=== PATIENT | female | born 1995 | race Two or more races ===

== ENCOUNTER 2019-06-22 21:25 | Emergency (ER) | payer MEDICAID ==
[2019-06-22 21:35] VITALS: BP 127/73
--- NOTE | 2019-06-22 22:19 | ER Document Report ---
ED Medical Screen (RME) - General Chief Complaint: Rectal Bleeding Stated Complaint: RECTAL BLEEDING Time Seen by Provider: 06/22/19 22:12 Notes: 24-year-old female, G4, P2 at 35 weeks gestation, chief complaint of sharp intermittent lower abdominal cramping, intermittent vaginal discharge, and rectal bleeding. She states she has had hemorrhoids and she thinks is a hemorrhoid but she was bleeding earlier more than usual so she wanted to be checked. She states her biggest concern is her . She denies fever, shortness of breath, chest pain, or any other complaints. Physical Exam - Vital signs Vitals: Temp Pulse Resp BP Pulse Ox 98.6 F 86 20 127/73 H 100 06/22/19 21:34 06/22/19 21:34 06/22/19 21:34 06/22/19 21:34 06/22/19 21:34 - General General appearance: Appears well - Well-appearing, no signs of distress - Abdominal Tenderness: No: Nontender - No distention noted, nontender Course - Re-evaluation Re-evalutation: Patient's primary concern is lower abdominal contractions, vaginal discharge, and she wants to be checked because of rectal bleeding. Patient is 35 weeks gestation. Spoke to charge nurse, spoke to nursing staff, they called L&D, patient will be evaluated upstairs. I have greeted and performed a rapid initial assessment of this patient. A comprehensive ED assessment and evaluation of the patient, analysis of test results and completion of the medical decision making process will be conducted by additional ED providers. - Vital Signs Vital signs: Temp Pulse Resp BP Pulse Ox 98.6 F 86 20 127/73 H 100 06/22/19 21:34 06/22/19 21:34 06/22/19 21:34 06/22/19 21:34 06/22/19 21:34
== END 2019-06-22 22:39 | disposition home or self-care (01) ==
LOC: ER 21:25
DX: O99.613 Diseases of the digestive system complicating pregnancy, third trimester (principal); K62.5 Hemorrhage of anus and rectum; O26.893 Other specified pregnancy related conditions, third trimester; R10.9 Unspecified abdominal pain; N89.8 Other specified noninflammatory disorders of vagina; Z3A.35 35 weeks gestation of pregnancy
CPT/HCPCS: 99283

== ENCOUNTER 2019-06-22 22:40 | Outpatient (CLI) | payer MEDICAID ==
[2019-06-22 23:02] LABS: APPEARANCE,URINE SLIGHTLY-CLOUDY; BILIRUBIN,URINE NEGATIVE (NEGATIVE); COLOR,URINE YELLOW; GLUCOSE, URINE NEGATIVE (NEGATIVE); KETONES,URINE NEGATIVE (NEGATIVE); LEUKOCYTE ESTERASE,URINE TRACE (NEGATIVE); NITRITE,URINE NEGATIVE (NEGATIVE); PROTEIN,URINE NEGATIVE (NEGATIVE); URINE SPECIFIC GRAVITY 1.008; UROBILINOGEN,URINE NEGATIVE mg/dL (<2.0)
[2019-06-22 23:15] LABS: URINE AMPHETAMINES SCREEN NEGATIVE; URINE BARBITURATES SCREEN NEGATIVE; URINE BENZODIAZEPINES SCREEN NEGATIVE; URINE COCAINE SCREEN NEGATIVE; URINE MARIJUANA (THC) SCREEN NEGATIVE; URINE METHADONE SCREEN NEGATIVE; URINE PHENCYCLIDINE SCREEN NEGATIVE
--- NOTE | 2019-06-23 00:07 | Non Stress Test Report ---
Non Stress Test Datetime Report Generated by CPN: 06/23/2019 00:07 DEMOGRAPHIC EGA NST: 33.6 INDICATION Indication for Study (NST) Other: Labor check MONITORING Monitor Explained: Monitor Explained; Test Explained; Patient Verbalized Understanding Time on Monitor: 06/22/2019 22:50 Time off Monitor: 06/22/2019 23:40 NST Duration: 50 NST INTERVENTIONS NST Interventions: PO Hydration Physician Notified NST: Dr. Jc BABY A: [id number] BABY A Movement : Present Contraction Frequency : none FHR Baseline : 135 Accelerations : 15X15 Decelerations : None Variability : Moderate 6-25bpm NST Review: Meets Criteria for Reactive NST NST Review and Verified By : Natalee Arias RN NST Results: Reactive NST REPORT Report Trigger: Send Report
== END 2019-06-22 23:55 | disposition home or self-care (01) ==
LOC: LC 22:40
PROVIDERS: ATTEND Obstetrics & Gynecology Gynecology
DX: Z34.83 Encounter for supervision of other normal pregnancy, third trimester (principal); Z3A.33 33 weeks gestation of pregnancy
CPT/HCPCS: 59025; 80307; 81001

== ENCOUNTER 2019-07-31 00:24 | Inpatient (IN) | payer MEDICAID ==
[2019-07-24 11:24] LABS: ABSOLUTE BASOPHILS # (AUTO) 0.1 10^3/uL (0.0-0.2); ABSOLUTE EOSINOPHILS # (AUTO) 0.2 10^3/uL (0.0-0.6); ABSOLUTE LYMPHOCYTES (AUTO) 2.8 10^3/uL (0.5-4.7); ABSOLUTE MONOCYTES (AUTO) 0.4 10^3/uL (0.1-1.4); ABSOLUTE NEUT (AUTO) 7.1 10^3/uL (1.7-8.2); BASOPHILS % (AUTO) 0.6 % (0-2); EOSINOPHILS % (AUTO) 2.3 % (0-6); HEMATOCRIT 27.3 % (36.0-47.0); HEMOGLOBIN 8.9 g/dL (12.0-15.5); LYMPHOCYTES % (AUTO) 26.6 % (13-45); MEAN CORPUSCULAR HEMOGLOBIN 23.8 pg (27.0-33.4); MEAN CORPUSCULAR HGB CONC 32.6 g/dL (32.0-36.0); MEAN CORPUSCULAR VOLUME 73 fl (80-97); MONOCYTES % (AUTO) 4.2 % (3-13); PLATELET COUNT 295 10^3/uL (150-450); RED BLOOD COUNT 3.73 10^6/uL (3.72-5.28); RED CELL DISTRIBUTION WIDTH 16.6 % (11.5-14.0); SEGMENTED NEUTROPHILS % (AUTO) 66.3 % (42-78); TOTAL CELLS COUNTED % (AUTO) 100 %; WHITE BLOOD COUNT 10.7 10^3/uL (4.0-10.5)
[2019-07-24 11:29] LABS: APPEARANCE,URINE SLIGHTLY-CLOUDY; BILIRUBIN,URINE NEGATIVE (NEGATIVE); COLOR,URINE YELLOW; GLUCOSE, URINE NEGATIVE (NEGATIVE); KETONES,URINE NEGATIVE (NEGATIVE); LEUKOCYTE ESTERASE,URINE NEGATIVE (NEGATIVE); NITRITE,URINE NEGATIVE (NEGATIVE); PROTEIN,URINE NEGATIVE (NEGATIVE); URINE SPECIFIC GRAVITY 1.008; UROBILINOGEN,URINE NEGATIVE mg/dL (<2.0)
[2019-07-24 11:46] LABS: URINE AMPHETAMINES SCREEN NEGATIVE; URINE BARBITURATES SCREEN NEGATIVE; URINE BENZODIAZEPINES SCREEN NEGATIVE; URINE COCAINE SCREEN NEGATIVE; URINE MARIJUANA (THC) SCREEN NEGATIVE; URINE METHADONE SCREEN NEGATIVE; URINE PHENCYCLIDINE SCREEN NEGATIVE
[2019-08-01] MEDS ORDERED: RINGERS SOLUTION,LACTATED 1,500 ML IV PRN (05:00)
[2019-08-01] MEDS ORDERED: CEFAZOLIN SODIUM 2 GM in DEXTROSE 5%-WATER 100 ML IV PRN (05:00)
[2019-08-01] MEDS ORDERED: LACTATED RINGERS 1000 ML IV PRN (05:00)
[2019-08-01] MEDS ORDERED: LIDOCAINE 0.5% INJ-PF (5 MG/ML) 50 ML SDV SUBCUT PRN (05:00)
[2019-08-01] MEDS ORDERED: CEFAZOLIN 2 GM/D5W RTU 2 GM/50 ML RTUPB IV PRN (05:00)
[2019-08-01 05:59] LABS: ABSOLUTE BASOPHILS # (AUTO) 0.1 10^3/uL (0.0-0.2); ABSOLUTE EOSINOPHILS # (AUTO) 0.2 10^3/uL (0.0-0.6); ABSOLUTE LYMPHOCYTES (AUTO) 3.8 10^3/uL (0.5-4.7); ABSOLUTE MONOCYTES (AUTO) 0.7 10^3/uL (0.1-1.4); ABSOLUTE NEUT (AUTO) 11.1 10^3/uL (1.7-8.2); BASOPHILS % (AUTO) 0.4 % (0-2); EOSINOPHILS % (AUTO) 1.4 % (0-6); HEMATOCRIT 27.6 % (36.0-47.0); HEMOGLOBIN 8.8 g/dL (12.0-15.5); LYMPHOCYTES % (AUTO) 23.7 % (13-45); MEAN CORPUSCULAR HEMOGLOBIN 22.9 pg (27.0-33.4); MEAN CORPUSCULAR HGB CONC 31.8 g/dL (32.0-36.0); MEAN CORPUSCULAR VOLUME 72 fl (80-97); MONOCYTES % (AUTO) 4.6 % (3-13); PLATELET COUNT 299 10^3/uL (150-450); RED BLOOD COUNT 3.83 10^6/uL (3.72-5.28); RED CELL DISTRIBUTION WIDTH 16.6 % (11.5-14.0); SEGMENTED NEUTROPHILS % (AUTO) 69.9 % (42-78); TOTAL CELLS COUNTED % (AUTO) 100 %; WHITE BLOOD COUNT 15.9 10^3/uL (4.0-10.5)
[2019-08-01 06:04] LABS: APPEARANCE,URINE TURBID; BILIRUBIN,URINE NEGATIVE (NEGATIVE); COLOR,URINE AMBER; GLUCOSE, URINE NEGATIVE (NEGATIVE); KETONES,URINE NEGATIVE (NEGATIVE); LEUKOCYTE ESTERASE,URINE LARGE (NEGATIVE); NITRITE,URINE NEGATIVE (NEGATIVE); PROTEIN,URINE 30 mg/dL (NEGATIVE); URINE SPECIFIC GRAVITY 1.017
[2019-08-01 06:16] LABS: URINE AMPHETAMINES SCREEN NEGATIVE; URINE BARBITURATES SCREEN NEGATIVE; URINE BENZODIAZEPINES SCREEN NEGATIVE; URINE COCAINE SCREEN NEGATIVE; URINE MARIJUANA (THC) SCREEN NEGATIVE; URINE METHADONE SCREEN NEGATIVE; URINE PHENCYCLIDINE SCREEN NEGATIVE
[2019-08-01] MEDS ORDERED: MISOPROSTOL 0.2 MG TABLET ONE (07:16)
[2019-08-01] MEDS ORDERED: METHYLERGONOVINE MALEATE INJ/PF 0.2 MG/1 ML AMPULE ONE (07:16)
[2019-08-01] MEDS ORDERED: CEFAZOLIN 2 GM/D5W RTU 2 GM/50 ML RTUPB IV ONE (07:16)
[2019-08-01] MEDS ORDERED: ONDANSETRON HCL INJ/PF 4 MG/2 ML SDV ONE (07:42)
[2019-08-01] MEDS ORDERED: DEXAMETHASONE SOD PHOSPHATE INJ 4 MG/1 ML VIAL ONE (07:42)
[2019-08-01] MEDS ORDERED: OXYTOCIN/0.9 % SODIUM CHLORIDE 30 UNIT/500 ML RTUINJ ONE (07:42)
[2019-08-01] MEDS ORDERED: MORPHINE SULFATE 10 MG/ML INJ ONE (07:42)
[2019-08-01] MEDS ORDERED: OXYTOCIN 10 UNIT/ML VIAL ONE (07:42)
[2019-08-01] MEDS ORDERED: MIDAZOLAM 2 MG/2 ML INJ ONE (07:42)
[2019-08-01] MEDS ORDERED: MEPERIDINE HCL/PF INJ 25 MG/1 ML DISP.SYRIN IV PRN (08:07)
[2019-08-01] MEDS ORDERED: FENTANYL CITRATE INJ/PF 100 MCG/2 ML AMPUL IV PRN ×3 (08:07)
[2019-08-01] MEDS ORDERED: MORPHINE SULFATE 10 MG/ML INJ IV PRN (08:07)
[2019-08-01] MEDS ORDERED: PROMETHAZINE HCL INJ 25 MG/1 ML VIAL IV PRN ×3 (08:07→09:02)
[2019-08-01] MEDS ORDERED: DIPHENHYDRAMINE HCL 50 MG/ML VIAL IV PRN (08:07)
[2019-08-01] MEDS ORDERED: OXYCODONE-ACETAMINOPHEN 5-325 MG TABLET PO PRN (09:02)
[2019-08-01] MEDS ORDERED: HYDROMORPHONE HCL INJ/PF 2 MG/ML AMPULE IV PRN (09:02)
[2019-08-01] MEDS ORDERED: ACETAMINOPHEN 325 MG TABLET PO PRN (09:02)
[2019-08-01] MEDS ORDERED: ACETAMINOPHEN 1,000 MG/100 ML RTUPB IV PRN (09:02)
[2019-08-01] MEDS ORDERED: OXYTOCIN/0.9 % SODIUM CHLORIDE 30 UNIT/500 ML RTUINJ IV PRN (09:02)
[2019-08-01] MEDS ORDERED: RINGERS SOLUTION,LACTATED 1,000 ML IV PRN (09:02)
[2019-08-01] MEDS ORDERED: DIPH/PERTUSS(ACELL)/TETANUS VAC/PF 0.5 ML SYR (>=10YO) IM PRN (09:02)
[2019-08-01] MEDS ORDERED: MEASLES,MUMPS&RUBELLA VACC/PF 0.5 ML VIAL SUBCUT PRN (09:02)
[2019-08-01] MEDS ORDERED: ALBUTEROL SULFATE HFA (90 MCG/PUFF) 8 GM MDI (1 MDI/ER DISP) IH PRN (09:05)
[2019-08-01] MEDS ORDERED: ACETAMINOPHEN 1,000 MG/100 ML RTUPB IV ONE (09:35)
[2019-08-01] MEDS ORDERED: KETOROLAC TROMETHAMINE INJ/PF 30 MG/1 ML SDV ONE (09:35)
[2019-08-01] MEDS ORDERED: SIMETHICONE 80 MG TAB.CHEW ONE (09:35)
[2019-08-01] MEDS: SIMETHICONE 80 MG TAB.CHEW PO PRN ×2 (09:37→23:34)
[2019-08-01] MEDS: KETOROLAC TROMETHAMINE INJ/PF 30 MG/1 ML SDV IV SCH ×2 (09:38→17:24)
--- NOTE | 2019-08-01 09:59 | Brief Operative Note ---
BRIEF OPERATIVE REPORT DATE OF SURGERY: 08/01/19 TIME OF SURGERY: 08:00 PREOPERATIVE DIAGNOSIS: H/o section, Hypertrophic Scar, , 39+4ega, CHTN, Asthma, h/o HSV but no lesions/prodrome, iron deficiency anemia POSTOPERATIVE DIAGNOSIS: SARAHI - delivered SURGEON: SORIN JACKSON FINDINGS: VMI delivered at 0814, weight 3570g, Apgars 8/9, normal bilateral tubes/ovaries, IVF 800ml, UOP 200ml, EBL 600ml, QBL 810ml COMPLICATIONS: None ESTIMATED BLOOD LOSS: 600 TISSUE REMOVED OR ALTERED: placenta and cord TECHNICAL PROCEDURE: Repeat section, Scar Revision
[2019-08-01] MEDS ORDERED: FENTANYL CITRATE INJ/PF 100 MCG/2 ML AMPUL ONE (10:19)
--- NOTE | 2019-08-01 11:26 | Delivery Summary ---
Del Sum A-C Datetime Report Generated by CPN: 08/01/2019 11:26 DELIVERY PERSONNEL DELIVERY PERSONNEL: [id number] Delivery Doctor:: Elvira Farrell MD COMMUNICATIONS PROFESSIONAL:: Matt Nash CRNA Labor and Delivery Nurse:: Cary Desai RN Skill Training Program Coordinator:: Cary Desai RN Cloth Bleaching Range Operator Chief:: Dr. Bart Sigalatal Nursery Nurse:: Rosa Thorne RN Medical Records Coder/SLEEVE BOTTOM FELLER: [facility] Medical Records Coder/SLEEVE BOTTOM FELLER: Sirisha Olsen, SHAREPOINT DEVELOPER MATERNAL INFORMATION Delivery Anesthesia: Spinal Medications After Delivery: Pitocin Bolus-Please Comment; Pitocin 30 Units in 500ml NS/D5W Meds After Delivery Comment: Pitocin 30 units in 500 ml NS Delivery QBL: 810 Maternal Complications: None LABOR SUMMARY EDC: 08/04/2019 00:00 No. Babies in Womb: 1 Attempted: No Labor Anesthesia: Intrathecal LABOR INFORMATION Reason for Induction: Not Applicable Oxytocin: N/A Group B Beta Strep: Positive Antibiotics # of Doses: 1 Name of Antibiotic Given: Ancef 2 g Steroids Given: None Reason Steroids Not Administered: Not Applicable MEMBRANES Membranes Rupture Method: Artificial Rupture of Membranes: 08/01/2019 08:13 Length of Rupture (hr): 0.02 Amniotic Fluid Color: Clear Amniotic Fluid Amount: Moderate Amniotic Fluid Odor: Normal STAGES OF LABOR Stage 3 hr: 0 Stage 3 min: 2 CSECTION DELIVERY Primary Indication: Repeat Elective CSection Urgency: Scheduled CSection Incidence: Repeat Labor: N/A Elective: Elective CSection Incision: Lower Uterine Transverse BABY A INFORMATION Infant Delivery Date/Time: 08/01/2019 08:14 Method of Delivery: Nurse Controlled Delivery: No Born in Route : No : N/A Forceps: N/A Vacuum Extraction: N/A Shoulder Dystocia : No PRESENTATION/POSITION BABY A Presentation: Cephalic Cephalic Presentation: Vertex Breech Presentation: N/A PLACENTA INFORMATION BABY A Placenta Delivery Time : 08/01/2019 08:16 Placenta Method of Delivery: Manual Removal Placenta Status: Delivered SCORES BABY A Heart Rate 1 min: >100 bpm Resp Effort 1 min: Good Cry Reflex Irritability 1 min: Cough or Sneeze or Pulls Away Muscle Tone 1 min: Active Motion Color 1 min: Body [place], Extremities Blue SCORE 1 MIN: 9 Heart Rate 5 min: >100 bpm Resp Effort 5 min: Good Cry Reflex Irritability 5 min: Cough or Sneeze or Pulls Away Muscle Tone 5 min: Active Motion Color 5 min: Body [place], Extremities Blue SCORE 5 MIN: 9 INFANT INFORMATION BABY A Gestational Age at Delivery: 39.4 Gestational Status: Full Term- 39- 40.6 Weeks Outcome : Liveborn Condition : Stable Sex: Male IDENTIFICATION BABY A Infant Verification Date/Time: 08/01/2019 08:17 ID Band Number: [id number] Mother's Name Verified: Yes RN Verifying : SHAINA Raines and Jimmy Thorne RN WEIGHT/LENGTH BABY A Birthweight (gm): 3570 Infant Weight (lb): 7 Infant Weight (oz): 14 Length (in): 20.25 Length (cm): 51.44 CORD INFORMATION BABY A No. Cord Vessels: 3 Nuchal Cord : Around Neck x1, Loose Cord Blood Taken: Yes-For Eval (Mom's Blood Type - or O+) Infant Suction: Mouth; Nose ASSESSMENT BABY A Skin to Skin: No BABY B INFORMATION : N/A
[2019-08-01] MEDS: DOCUSATE SODIUM 100 MG CAPSULE PO SCH ×2 (11:29→17:25)
[2019-08-01] MEDS: PRENATAL VITAMIN W DHA CAPSULE PO SCH (11:29)
[2019-08-01] MEDS: FERROUS SULFATE 325 MG TABLET PO SCH (11:29)
[2019-08-01] MEDS: OXYCODONE-ACETAMINOPHEN 5-325 MG TABLET PO PRN ×2 (11:30→20:23)
[2019-08-01] MEDS ORDERED: PHENYLEPHRINE HCL INJ/PF 10 MG/1 ML SDV ONE (14:42)
--- NOTE | 2019-08-01 20:15 | Operative Report ---
Operative Report DATE OF SURGERY: 08/01/19 PREOPERATIVE DIAGNOSIS: H/o section, Hypertrophic Scar, , 39+4e ga, CHTN, Asthma, h/o HSV but no lesions/prodrome, iron deficiency anemia POSTOPERATIVE DIAGNOSIS: ovi - delivered OPERATION: Repeat section, Scar Revision SURGEON: SORIN JACKSON ANESTHESIA: Spinal TISSUE REMOVED OR ALTERED: placenta and cord COMPLICATIONS: none ESTIMATED BLOOD LOSS: 600 QUANTITATIVE BLOOD LOSS: 810 INTRAOPERATIVE FINDINGS: VMI delivered at 0814, weight 3570g, Apgars 8/9, normal bilateral tubes/ovaries, IVF 800ml, UOP 200ml, EBL 600ml, QBL 810ml PROCEDURE: Anesthesia provider: [Dr. Romero, YOLI Johnson] Urine output: [200ml] IV fluids: [800ml] Indications: [24yo at 39+4ega weeks for Repeat section due to history of section. complicated by CHTN (no meds), asthma (mild intermittent controlled on albuterol inhaler), h/o HSV on valtrex since 36wks (no lesions/no prodrome). also complicated by mild iron deficiency anemia for which she is supposed to be on iron but is non compliant due to constipation. The risks, benefits, alternatives were reviewed and she desires to proceed with planned procedure.] Procedure: The patient was taken to the operating room where spinal anesthesia was obtained and found to be adequate. She was then prepped and draped in the normal sterile fashion and placed in the dorsal supine position with a leftward tilt. The prior Pfannenstiel skin incision was excised and then carried through to the underlying layers of the fascia with the scalpel. The fascia was incised in the midline and the incision extended laterally with the Burns scissors. The superior aspect of the fascial incision was then grasped with Valeriano clamps elevated and the underlying rectus muscles dissected off [bluntly]. Attention was then turned to the inferior aspect of the fascial incision which in a similar fashion was grasped, tented up with Valeriano clamps, and the rectus muscles dissected off [bluntly]. The rectus muscles were then in the midline and the peritoneum at the amount identified and entered [bluntly]. The peritoneal incision was then extended superiorly and inferiorly with good visualization of the bladder. The bladder blade was inserted and the vesicouterine peritoneum identified grasped with Chinese pickups and entered sharply with the Metzenbaum scissors. This incision was then extended laterally with the Metzenbaum scissors and a bladder flap created digitally. The bladder blade was then reinserted and the lower uterine segment incised in a transverse fashion with the scalpel. The uterine incision was then extended bluntly. The bladder blade was removed and the 's head was delivered from cephalic presentation atraumatically. The nose and mouth were suctioned and the cord doubly clamped and cut. And the was handed off to waiting pediatricians. The placenta was then delivered spontaneously and the uterus exteriorized and cleared of all clots and debris. The uterine incision was then repaired with 1- 0 Vicryl in a running locked fashion. A second layer of the same suture was used to obtain hemostasis via imbrication of the initial layer. The bladder flap was then repaired with 3-0 chromic in a running fashion. The uterus was returned to the patient's abdomen and Surgicel was placed over uterine incision for hemostasis. The gutters were cleared of all clots and debris. All operative sites were noted to be hemostatic. The fascia was reapproximated with 0 Vicryl in a running fashion from each lateral edge to the midline. The skin was closed with 3-0 Monocryl in a running subcuticular fashion with overlying Exofin for additional dressing as well as wound closure. The patient tolerated the procedure well. Sponge lap needle and instrument counts are correct time 2. 2 g of Ancef were given prior to skin incision. The patient was taken to the recovery area awake and in stable condition.
[2019-08-02] MEDS: KETOROLAC TROMETHAMINE INJ/PF 30 MG/1 ML SDV IV SCH (01:04)
[2019-08-02] MEDS: OXYCODONE-ACETAMINOPHEN 5-325 MG TABLET PO PRN ×3 (03:14→21:53)
[2019-08-02 07:04] LABS: MEAN CORPUSCULAR HEMOGLOBIN 23.1 pg (27.0-33.4); MEAN CORPUSCULAR HGB CONC 31.9 g/dL (32.0-36.0); MEAN CORPUSCULAR VOLUME 72 fl (80-97); PLATELET COUNT 249 10^3/uL (150-450); RED BLOOD COUNT 3.04 10^6/uL (3.72-5.28); RED CELL DISTRIBUTION WIDTH 16.7 % (11.5-14.0); WHITE BLOOD COUNT 19.1 10^3/uL (4.0-10.5)
[2019-08-02] MEDS: SIMETHICONE 80 MG TAB.CHEW PO PRN ×2 (08:07→14:56)
[2019-08-02] MEDS: IBUPROFEN 800 MG TABLET PO SCH ×3 (08:07→18:27)
[2019-08-02] MEDS ORDERED: IRON SUCROSE COMPLEX INJ/PF 100 MG/5 ML SDV IV ONE (10:00)
[2019-08-02] MEDS: DOCUSATE SODIUM 100 MG CAPSULE PO SCH ×2 (10:04→18:27)
[2019-08-02] MEDS: PRENATAL VITAMIN W DHA CAPSULE PO SCH (10:04)
[2019-08-02] MEDS: FERROUS SULFATE 325 MG TABLET PO SCH (10:04)
--- NOTE | 2019-08-02 11:12 | PDOC PROGRESS REPORT ---
Subjective-OB Progress Note for:: 08/02/19 Subjective: Pt doing well. Bonding with baby. She is trying to breastfeed but having trouble with latch this am. Otherwise reports light bleeding, reg diet and voiding without difficulty. Physical Exam (OB) Vital Signs: Temp Pulse Resp BP Pulse Ox 98.1 F 83 16 130/66 H 96 08/02/19 07:24 08/02/19 07:24 08/02/19 07:24 08/02/19 07:24 08/02/19 07:24 Intake & Output 08/01/19 08/02/19 08/03/19 06:59 06:59 06:59 Intake Total 1640 Output Total 4800 Balance -3160 - Dressing Removed: No Incision: Well Approximated Closure Type: Surgical Glue - Lochia Lochia Amount: Scant < 10 ml Lochia Color: Rubra/Red - Abdomen Description: Soft Hernia Present: No Fundal Description: Firm, Midline Fundal Height: u/u - u/2 Objective-Diagnostic Laboratory: 08/02/19 06:24 08/02/19 06:24 WBC 19.1 H RBC 3.04 L Hgb 7.0 L Hct 22.0 L MCV 72 L MCH 23.1 L MCHC 31.9 L RDW 16.7 H Plt Count 249 Assessment and Plan(PN) - Assessment and Plan (1) Chronic hypertension Is this a current diagnosis for this admission?: Yes (2) History of SARAH positive for HSV Is this a current diagnosis for this admission?: Yes (3) History of section Is this a current diagnosis for this admission?: Yes (4) History of depression Is this a current diagnosis for this admission?: Yes (5) S/P repeat low transverse Is this a current diagnosis for this admission?: Yes - Time Spent with Patient Time with patient: Less than 15 minutes Medications reviewed and adjusted accordingly: Yes - Disposition Anticipated Discharge: Home Within: within 24 hours
[2019-08-03] MEDS: IBUPROFEN 800 MG TABLET PO SCH ×3 (00:05→12:12)
[2019-08-03] MEDS: SIMETHICONE 80 MG TAB.CHEW PO PRN (00:05)
[2019-08-03 07:48] LABS: HSV-I IGG AB <0.91 index (0.00-0.90)
[2019-08-03 08:01] VITALS: BP 131/78
--- NOTE | 2019-08-03 09:25 | PDOC PROGRESS REPORT ---
Subjective-OB Progress Note for:: 08/03/19 Subjective: Doing well, no c/o, ready to go home, breast and bottle feeding, pain under control Physical Exam (OB) Vital Signs: Temp Pulse Resp BP Pulse Ox 98.3 F 97 16 131/78 H 100 08/03/19 07:59 08/03/19 07:59 08/03/19 07:59 08/03/19 07:59 08/03/19 07:59 Intake & Output 08/02/19 08/03/19 08/04/19 06:59 06:59 06:59 Intake Total 1640 750 Output Total 4800 250 Balance -3160 500 - PIH/Pre-Eclampsia DTR's: 2 + Clonus: Negative Headache: Absent Epigastric Pain: No Visual Changes: No - Dressing Removed: No Incision: Open, Well Approximated Closure Type: Surgical Glue - Lochia Lochia Amount: Scant < 10 ml Lochia Color: Rubra/Red - Abdomen Description: Soft, Round Hernia Present: No Fundal Description: Firm, Midline Fundal Height: u/u - u/2 Objective-Diagnostic Laboratory: 08/02/19 06:24 Assessment and Plan(PN) - Assessment and Plan (1) GBS (group B Streptococcus carrier), +RV culture, currently Is this a current diagnosis for this admission?: Yes (2) History of SARAH positive for HSV Is this a current diagnosis for this admission?: Yes (3) History of depression Is this a current diagnosis for this admission?: Yes (4) Chronic hypertension Is this a current diagnosis for this admission?: Yes (5) S/P repeat low transverse Is this a current diagnosis for this admission?: Yes (6) History of section Is this a current diagnosis for this admission?: Yes - Time Spent with Patient Time with patient: Less than 15 minutes Medications reviewed and adjusted accordingly: Yes - Disposition Anticipated Discharge: Home Within: within 24 hours
--- NOTE | 2019-08-03 09:33 | PDOC DISCHARGE SUMMARY ---
Impression - Admit/DC Date/PCP Admission Date/Primary Care Provider: 08/01/19 05:15 Discharge Date: 08/03/19 - Discharge Diagnosis (1) GBS (group B Streptococcus carrier), +RV culture, currently Is this a current diagnosis for this admission?: Yes (2) History of SARAH positive for HSV Is this a current diagnosis for this admission?: Yes (3) History of depression Is this a current diagnosis for this admission?: Yes (4) Chronic hypertension Is this a current diagnosis for this admission?: Yes (5) S/P repeat low transverse Is this a current diagnosis for this admission?: Yes (6) History of section Is this a current diagnosis for this admission?: Yes - Additional Information Resuscitation Status: Full Code Discharge Diet: As Tolerated, Regular Discharge Activity: Activity As Tolerated, No Driving, No Lifting Over 10 Pounds, No Lifting/Push/Pulling, Pelvic Rest Referrals: ZENAIDA KHAN MD [ACTIVE STAFF] - (wha 1 week) Prescriptions: Oxycodone HCl/Acetaminophen [Percocet 5-325 mg Tablet] 1 tab PO Q4HP PRN #20 tablet PRN Reason: Ibuprofen [Motrin 800 mg Tablet] 800 mg PO Q6 #30 tablet Home Medications: Docusate Sodium [Colace 100 mg Capsule] 100 mg PO DAILY 06/22/19 Ferrous Sulfate [Feosol 325 mg Tablet] 325 mg PO DAILY 06/22/19 Albuterol Sulfate [Albuterol Sulfate Hfa] 8.5 gm IH ASDIR PRN 07/24/19 Ibuprofen [Motrin 800 mg Tablet] 800 mg PO Q6 #30 tablet 08/03/19 Oxycodone HCl/Acetaminophen [Percocet 5-325 mg Tablet] 1 tab PO Q4HP PRN #20 tablet 08/03/19 Vit/Dha [ Multi + Dha Capsule] 1 cap PO DAILY capsule 08/03/19 HPI Gestational Age: 39.5 Reason(s) for Admission: Ceasarean Section-Repeat, Group B Strep Positive Procedures: NST, Ultrasound Intrapartum Procedure(s): : Low Cervical, Transverse Hospital Course Hospital Course: routine post op, alot of gas pains Results Laboratory Results: WBC 19.1 10^3/uL (4.0-10.5) H 08/02/19 06:24 RBC 3.04 10^6/uL (3.72-5.28) L 08/02/19 06:24 Hgb 7.0 g/dL (12.0-15.5) L 08/02/19 06:24 Hct 22.0 % (36.0-47.0) L 08/02/19 06:24 MCV 72 fl (80-97) L 08/02/19 06:24 MCH 23.1 pg (27.0-33.4) L 08/02/19 06:24 MCHC 31.9 g/dL (32.0-36.0) L 08/02/19 06:24 RDW 16.7 % (11.5-14.0) H 08/02/19 06:24 Plt Count 249 10^3/uL (150-450) 08/02/19 06:24 Lymph % (Auto) 23.7 % (13-45) 08/01/19 05:40 [place] % (Auto) 4.6 % (3-13) 08/01/19 05:40 Eos % (Auto) 1.4 % (0-6) 08/01/19 05:40 Baso % (Auto) 0.4 % (0-2) 08/01/19 05:40 Absolute Neuts (auto) 11.1 10^3/uL (1.7-8.2) H 08/01/19 05:40 Absolute Lymphs (auto) 3.8 10^3/uL (0.5-4.7) 08/01/19 05:40 Absolute Monos (auto) 0.7 10^3/uL (0.1-1.4) 08/01/19 05:40 Absolute Eos (auto) 0.2 10^3/uL (0.0-0.6) 08/01/19 05:40 Absolute Basos (auto) 0.1 10^3/uL (0.0-0.2) 08/01/19 05:40 Seg Neutrophils % 69.9 % (42-78) 08/01/19 05:40 Urine Color ALBERTO 08/01/19 05:30 Urine Appearance TURBID 08/01/19 05:30 Urine pH 5.0 (5.0-9.0) 08/01/19 05:30 Ur Specific [place] 1.017 08/01/19 05:30 Urine Protein 30 mg/dL (NEGATIVE) H 08/01/19 05:30 Urine Glucose (UA) NEGATIVE mg/dL (NEGATIVE) 08/01/19 05:30 Urine Ketones NEGATIVE mg/dL (NEGATIVE) 08/01/19 05:30 Urine Blood NEGATIVE (NEGATIVE) 08/01/19 05:30 Urine Nitrite NEGATIVE (NEGATIVE) 08/01/19 05:30 Urine Bilirubin NEGATIVE (NEGATIVE) 08/01/19 05:30 Urine Urobilinogen 2.0 mg/dL (<2.0) H 08/01/19 05:30 Ur Leukocyte Esterase LARGE (NEGATIVE) H 08/01/19 05:30 Urine WBC (Auto) 31 /HPF 08/01/19 05:30 Urine RBC (Auto) 3 /HPF 08/01/19 05:30 Urine Bacteria (Auto) 2+ /HPF 08/01/19 05:30 Urine WBC Clumps MOD /HPF 08/01/19 05:30 Squamous Epi Cells Auto 26 /HPF 08/01/19 05:30 Urine Mucus (Auto) OCC /LPF 08/01/19 05:30 Urine Ascorbic Acid NEGATIVE (NEGATIVE) 08/01/19 05:30 Urine Opiates Screen NEGATIVE 08/01/19 05:30 Urine Methadone Screen NEGATIVE 08/01/19 05:30 Ur Barbiturates Screen NEGATIVE 08/01/19 05:30 Ur Phencyclidine Scrn NEGATIVE 08/01/19 05:30 Ur Amphetamines Screen NEGATIVE 08/01/19 05:30 U Benzodiazepines Scrn NEGATIVE 08/01/19 05:30 Urine Cocaine Screen NEGATIVE 08/01/19 05:30 U Marijuana (THC) Screen NEGATIVE 08/01/19 05:30 COVID-19 Source NASOPHARYNGEAL 07/24/19 10:35 COVID-19 ([facility]) NOT DETECTED 07/24/19 10:35 HSV I&II IgM Ab 1.17 RATIO (0.00-0.90) H 08/01/19 05:40 HSV I IgG Ab <0.91 index (0.00-0.90) 08/01/19 05:40 HSV II Specific Ab 11.00 index (0.00-0.90) H 08/01/19 05:40 Blood Type O POSITIVE 07/31/19 10:43 Antibody Screen NEGATIVE 07/31/19 10:43 Plan Health Concerns: pain management and gas Plan of Treatment: d/c home, colace and laxative if need, rx for pain meds Goals: no complications Time Spent: Less than 30 Minutes
[2019-08-03] MEDS: OXYCODONE-ACETAMINOPHEN 5-325 MG TABLET PO PRN (09:34)
[2019-08-03] MEDS: DOCUSATE SODIUM 100 MG CAPSULE PO SCH (09:34)
[2019-08-03] MEDS: FERROUS SULFATE 325 MG TABLET PO SCH (09:34)
[2019-08-03] MEDS: PRENATAL VITAMIN W DHA CAPSULE PO SCH (09:34)
== END 2019-08-03 13:50 | disposition home or self-care (01) | DRG 787 ==
LOC: 2S 08-01 05:15
PROVIDERS: ADMIT Student in an Organized Health Care Education/Training Program; ATTEND Student in an Organized Health Care Education/Training Program
PROC: 10D00Z1 Extraction of Products of Conception, Low, Open Approach (ICD-10-PCS; principal; 2019-08-01)
DX: O34.211 Maternal care for low transverse scar from previous cesarean delivery (principal); O10.92 Unspecified pre-existing hypertension complicating childbirth; O98.32 Other infections with a predominantly sexual mode of transmission complicating childbirth; O99.824 Streptococcus B carrier state complicating childbirth; A60.9 Anogenital herpesviral infection, unspecified; O99.02 Anemia complicating childbirth; J45.20 Mild intermittent asthma, uncomplicated; D50.9 Iron deficiency anemia, unspecified; O99.52 Diseases of the respiratory system complicating childbirth; O69.81X0 Labor and delivery complicated by cord around neck, without compression, not applicable or unspecified; Z03.818 Encounter for observation for suspected exposure to other biological agents ruled out; Z3A.39 39 weeks gestation of pregnancy; Z91.013 Allergy to seafood; Z91.09 Other allergy status, other than to drugs and biological substances; Z37.0 Single live birth; Z91.14 Patient's other noncompliance with medication regimen
CPT/HCPCS: 1961; 36415; 59025; 80307; 81001; 85025; 85027; 86695; 86696; 86850; 86900; 86901; 87635; 94799; C9803; J0131; J0690; J1100; J1756; J1885; J2210; J2250; J2270; J2370; J2405; J2550; J2590; J3010; J3490; J7060; J7120

== ENCOUNTER 2019-08-05 09:09 | Emergency (ER) | payer MEDICAID ==
[2019-08-05 09:41] LABS: ABSOLUTE BASOPHILS # (AUTO) 0.1 10^3/uL (0.0-0.2); ABSOLUTE EOSINOPHILS # (AUTO) 0.6 10^3/uL (0.0-0.6); ABSOLUTE MONOCYTES (AUTO) 0.5 10^3/uL (0.1-1.4); ABSOLUTE NEUT (AUTO) 10.4 10^3/uL (1.7-8.2); BASOPHILS % (AUTO) 0.5 % (0-2); EOSINOPHILS % (AUTO) 4.2 % (0-6); HEMATOCRIT 23.8 % (36.0-47.0); LYMPHOCYTES % (AUTO) 20.3 % (13-45); MEAN CORPUSCULAR HEMOGLOBIN 23.5 pg (27.0-33.4); MEAN CORPUSCULAR HGB CONC 31.7 g/dL (32.0-36.0); MEAN CORPUSCULAR VOLUME 74 fl (80-97); MONOCYTES % (AUTO) 3.5 % (3-13); PLATELET COUNT 349 10^3/uL (150-450); RED BLOOD COUNT 3.21 10^6/uL (3.72-5.28); SEGMENTED NEUTROPHILS % (AUTO) 71.5 % (42-78); TOTAL CELLS COUNTED % (AUTO) 100 %; WHITE BLOOD COUNT 14.5 10^3/uL (4.0-10.5)
[2019-08-05 09:44] LABS: HEMOGLOBIN 7.5 g/dL (12.0-15.5)
--- NOTE | 2019-08-05 10:26 | ER Document Report ---
ED GI/ - General Chief Complaint: Post Problem Stated Complaint: POST PROBLEM Time Seen by Provider: 08/05/19 10:06 Primary Care Provider: MICHELA CHANDLER MD [Primary Care Provider] - Follow up as needed Mode of Arrival: Ambulatory Information source: Patient Notes: This 24-year-old female presents to the emergency department with a history of heavy vaginal bleeding. She is 4 days that this morning she began to have cramping abdominal pain and hemorrhaging with large number of clots. She became lightheaded and then decided to come to the hospital because of the constant drainage of blood down her legs. Her second in 2 years, she has a [id number] at home also. - Related Data Allergies/Adverse Reactions: shellfish derived Allergy (Severe, Verified 08/05/19 09:20) Anaphylaxis cats Allergy (Severe, Uncoded 08/05/19 09:20) Hives Past Medical History - Social History Smoking Status: Never Smoker Chew tobacco use (# tins/day): No Frequency of alcohol use: None Drug Abuse: None Family History: Reviewed & Not Pertinent - Past Medical History Cardiac Medical History: Reports: Hx Hypertension - no meds Denies: Hx Pulmonary Embolism, Hx Heart Murmur Pulmonary Medical History: Reports: Hx Asthma - inhalers Denies: Hx Sleep Apnea, Hx Tuberculosis Neurological Medical History: Denies: Hx Cerebrovascular Accident, Hx Seizures GI Medical History: Reports: Hx Gastroesophageal Reflux Disease Psychiatric Medical History: Reports: Hx Depression - Traumatic Medical History: Reports: Hx Fractures Infectious Medical History: Denies: Hx HIV Past Surgical History: Reports: Hx Section - Immunizations Immunizations up to date: Yes Hx Diphtheria, Pertussis, Tetanus Vaccination: Yes Review of Systems - Review of Systems Notes: Constitutional: Negative for fever. HENT: Negative for sore throat. Eyes: Negative for visual changes. Cardiovascular: Negative for chest pain. Respiratory: Negative for shortness of breath. Gastrointestinal: Negative for abdominal pain, vomiting or diarrhea. Genitourinary: + Vaginal bleeding, pelvic cramping Musculoskeletal: Negative for back pain. Skin: Negative for rash. Neurological: Negative for headaches, weakness or numbness. 10 point ROS negative except as marked above and in HPI. Physical Exam - Vital signs Vitals: Temp Pulse Resp BP Pulse Ox 98.8 F 101 H 14 126/73 H 100 08/05/19 09:13 08/05/19 09:13 08/05/19 09:13 08/05/19 09:13 08/05/19 09:13 - Notes Notes: PHYSICAL EXAMINATION: Physical Exam: General: Well-nourished well-developed in no acute distress HEENT: NC/AT, pupils equal round and reactive to light, MM moist,nares clear, oropharynx clear, airway patent Neck: supple, no adenopathy, no masses. Good range of motion Lungs: clear, no wheezing, no rales no rhonchi CVS: Regular rate and rhythm no murmur gallop or rub Abdomen: Soft, active, nontender, no masses, no hepatosplenomegaly : Normal external genitalia with bright red blood noted on the external labia and onto the lateral aspect of the thighs bilaterally, vaginal vault filled with bright red blood and clots, clots were removed, cervix intact closed, bright red blood noted per cervical loss, brisk bleeding. Uterus: Doughy/moderate tenderness Ext: No edema, clubbing or cyanosis. Neuro: Alert and responsive, moving all 4 extremities on command, cranial nerves intact, no focal findings Skin: Intact no open lesions, no rash PSYCH: Normal mood, normal affect. Course - Re-evaluation Re-evalutation: 08/05/19 10:50 Patient has significant vaginal bleeding 4 days , Dr. Marcano ORDER ADMINISTRATOR in school suspension coordinator notified, states that she will see the patient in the emergency department. An ultrasound is ordered. Patient is hemodynamically stable, lactated Ringer's is started and repeat blood pressures are monitored closely. 08/05/19 10:51 Blood pressure noted to be 126/63, patient having some cramping abdominal pain and tearful because of circumstances. Awaiting ultrasound report. 08/05/19 18:10 Dr. Marcano has managed the patient medically, the bleeding has subsided and the patient was transfused 2 units of packed RBCs. The patient is being discharged home to follow-up as an outpatient next week. The patient and her mother are in agreement with this plan. She is up and ambulating without difficulty. - Vital Signs Vital signs: Temp Pulse Resp BP Pulse Ox 98.9 F 114 H 17 112/55 L 96 08/05/19 18:20 08/05/19 12:10 08/05/19 17:45 08/05/19 17:45 08/05/19 17:45 - Laboratory Result Diagrams: 08/05/19 16:50 Laboratory results interpreted by me: 08/05/19 08/05/19 08/05/19 09:25 09:25 11:28 WBC 14.5 H 17.6 H RBC 3.21 L 2.96 L Hgb 7.5 L 6.9 L Hct 23.8 L 22.1 L MCV 74 L 75 L MCH 23.5 L 23.2 L MCHC 31.7 L 31.1 L RDW 17.0 H 17.1 H Absolute Neuts (auto) 10.4 H 12.9 H Seg Neuts % (Manual) Monocytes % (Manual) Abs Neuts (Manual) Crossmatch See Detail 08/05/19 16:50 WBC 22.9 H RBC 3.71 L Hgb 9.4 L D Hct 28.9 L MCV 78 L MCH 25.4 L MCHC RDW 18.8 H Absolute Neuts (auto) Seg Neuts % (Manual) 81 H Monocytes % (Manual) 1 L Abs Neuts (Manual) 18.5 H Crossmatch 08/05/19 18:10 I have reviewed laboratory data and used this information for the treatment decisions regarding the patient. - Diagnostic Test Radiology reviewed: Image reviewed, Reports reviewed Radiology results interpreted by me: 08/05/19 11:12 Pelvic ultrasound: uterus with large amount of heterogeneous contents within the endometrial canal, differential hemorrhagic content versus retained products of conception. Discharge - Discharge Clinical Impression: bleeding Qualifiers: hemorrhage type: delayed hemorrhage Qualified Code(s): O72.2 - Delayed and secondary hemorrhage Condition: Good Disposition: HOME, SELF-CARE Additional Instructions: You were seen in the emergency department today with vaginal bleeding. You received transfusion of blood and medications to control the bleeding. You are to follow-up with Dr. Marcano in the office next week, please call the office on Wednesday to schedule the appointment. You may use Tylenol or ibuprofen for pain. If you develop further concerns or significant bleeding you may return to the emergency department for further evaluation and treatment. HOME CARE INSTRUCTIONS & INFORMATION: Thank you for choosing us for your medical needs. We hope you're satisfied with the care you received. After you leave, you must properly care for your problem and, at the same time, observe its progress. Any condition can change. Some illnesses can change rapidly over hours or days. If your condition worsens, return to the Emergency Department or see your physician promptly. ABOUT YOUR X-RAYS AND EKG'S: If you had an EKG or X-rays taken, they have been read by the Emergency Physician. The X-rays and EKG's will also be read by a Radiologist or Director Of Physical Therapy within 24 hours. If discrepancies are noted, you will be notified by telephone. Please be certain the ED has a correct telephone number & address where you can be reached. Also, realize that some fractures or abnormalities do not show up on initial X-rays. If your symptoms continue, see your physician. ABOUT YOUR LABORATORY TEST: If you had laboratory tests, the results have been reviewed by the Emergency Physician. Some test results (for example cultures) may not be available for several days. You will be contacted if any test result shows you need additional treatment. Please be certain the ED has a correct [facility] number and address where you can be reached. ABOUT YOUR MEDICATIONS: You will receive instructions on how to take your medicine on the prescription label you receive. Additional information may be provided by the Pharmacy. If you have questions afterwards, call the ED for clarification or further instructions. Some prescribed medications may cause drowsiness. Do not perform tasks such as driving a car or operating machinery without consulting your Pharmacist. If you feel you need a refill of pain medication, your condition will need re-evaluation. Please do not call for a refill of any medication. ABOUT YOUR SIGNATURE: Signature of this document acknowledges to followin. Understanding that you received emergency treatment and that you may be released before al medical problems are known or treated. Please be certain the ED has a correct phone number & address where you can be reached. 2. Acknowledgement that you will arrange for follow-up care as recommended. 3. Authorization for the Emergency Physician to provide information to your follow-up Physician in order to maximize your care. AT ANY TIME, IF YOUR SYMPTOMS CHANGE SIGNIFICANTLY OR WORSEN OR YOU DEVELOP NEW SYMPTOMS, RETURN TO THE EMERGENCY DEPARTMENT IMMEDIATELY FOR RE-EVALUATION. OUR GOAL IS TO PROVIDE EXCELLENT MEDICAL CARE! WE HOPE THAT WE HAVE MET YOUR EXPECTATIONS DURING YOUR EMERGENCY DEPARTMENT VISIT AND THAT YOU FEEL YOU HAVE RECEIVED EXCELLENT CARE! Prescriptions: Methylergonovine Maleate [Methergine 0.2 Mg Tablet] 0.2 mg PO Q8 #21 tablet Referrals: MICHELA CHANDLER MD [Primary Care Provider] - Follow up as needed
[2019-08-05] MEDS ORDERED: RINGERS SOLUTION,LACTATED 1,000 ML IV ONE (10:27)
[2019-08-05] MEDS ORDERED: MORPHINE SULFATE 10 MG/ML INJ IV ONE ×2 (11:10→13:43)
[2019-08-05] MEDS ORDERED: ONDANSETRON HCL INJ/PF 4 MG/2 ML SDV IV ONE (11:10)
--- NOTE | 2019-08-05 11:11 | RADIOLOGY REPORT (SQ) ---
EXAM DESCRIPTION: U/S NON-OB PELVIS LTD W/O DOP IMAGES COMPLETED DATE/TIME: 08/05/2019 10:57 am REASON FOR STUDY: hemorrhage COMPARISON: None. TECHNIQUE: Dynamic and static grayscale images acquired of the pelvis via transabdominal approach an d recorded on PACS. LIMITATIONS: None. FINDINGS: UTERUS: Enlarged, consistent with history. ENDOMETRIAL STRIPE: The endometrium is markedly thickened with a large amount of heterogeneous materi al noted within the endometrial canal. CERVIX: Unremarkable RIGHT OVARY : Not visualized LEFT OVARY : Not visualized FREE FLUID: None noted. OTHER: No other significant finding. MEASUREMENTS: UTERUS: 17.1 x 6.5 x 11.7 cm ENDOMETRIAL STRIPE: 2.9 cm RIGHT OVARY: Not visualized. LEFT OVARY: Not visualized. IMPRESSION: uterus with a large amount of heterogeneous contents within the endometrial c anal. The differential diagnosis includes hemorrhagic products versus retained products of conceptio n. TECHNICAL DOCUMENTATION: JOB ID: [id number] 2010 [employer]- All Rights Reserved Rev Reading location - IP/workstation name: [email or web address]
[2019-08-05] MEDS ORDERED: MISOPROSTOL 0.2 MG TABLET PR ONE (11:35)
[2019-08-05 11:47] LABS: ABSOLUTE BASOPHILS # (AUTO) 0.1 10^3/uL (0.0-0.2); ABSOLUTE EOSINOPHILS # (AUTO) 0.6 10^3/uL (0.0-0.6); ABSOLUTE LYMPHOCYTES (AUTO) 3.5 10^3/uL (0.5-4.7); ABSOLUTE MONOCYTES (AUTO) 0.6 10^3/uL (0.1-1.4); ABSOLUTE NEUT (AUTO) 12.9 10^3/uL (1.7-8.2); BASOPHILS % (AUTO) 0.5 % (0-2); EOSINOPHILS % (AUTO) 3.2 % (0-6); HEMATOCRIT 22.1 % (36.0-47.0); LYMPHOCYTES % (AUTO) 19.8 % (13-45); MEAN CORPUSCULAR HEMOGLOBIN 23.2 pg (27.0-33.4); MEAN CORPUSCULAR HGB CONC 31.1 g/dL (32.0-36.0); MEAN CORPUSCULAR VOLUME 75 fl (80-97); MONOCYTES % (AUTO) 3.3 % (3-13); PLATELET COUNT 350 10^3/uL (150-450); RED BLOOD COUNT 2.96 10^6/uL (3.72-5.28); RED CELL DISTRIBUTION WIDTH 17.1 % (11.5-14.0); SEGMENTED NEUTROPHILS % (AUTO) 73.2 % (42-78); TOTAL CELLS COUNTED % (AUTO) 100 %; WHITE BLOOD COUNT 17.6 10^3/uL (4.0-10.5)
[2019-08-05 11:48] LABS: HEMOGLOBIN 6.9 g/dL (12.0-15.5)
--- NOTE | 2019-08-05 11:48 | PDOC CONSULTATION ---
Consultation Consult Date: 08/05/19 Attending physician:: ALBIN MUNIZ Provider Consulted: ARIE CHAIREZ Consult reason:: 4 days post c/section here with hemorrage History of Present Illness Admission Date/PCP: MICHELA CHANDLER MD History of Present Illness: ABRAHAM ARELLANO is a 24 year old female s/p a repeat c/section on 08/01/19 (4 days ago) presenting with excessive vaginal bleeding since this am. Hemoglobin is dropped to 7.5 and patient is symptomatic complaining of dizziness and shaking/feeling cold. Dr. Muniz called me for consult and reported on his exam a significant amount of blood clots in the vagina at his exam. Past Medical History Cardiac Medical History: Reports: Hypertension - no meds Denies: Pulmonary Embolism, Heart Murmur Pulmonary Medical History: Reports: Asthma - inhalers Denies: Sleep Apnea, Tuberculosis Neurological Medical History: Denies: Seizures GI Medical History: Reports: Gastroesophageal Reflux Disease Psychiatric Medical History: Reports: Depression - Infectious Medical History: Denies: HIV Social History Smoking Status: Never Smoker Electronic Cigarette use?: No Family History Family History: Reviewed & Not Pertinent Parental Family History Reviewed: Yes Children Family History Reviewed: Yes Sibling(s) Family History Reviewed.: Yes Medication/Allergy Home Medications: Docusate Sodium [Colace 100 mg Capsule] 100 mg PO DAILY 06/22/19 Ferrous Sulfate [Feosol 325 mg Tablet] 325 mg PO DAILY 06/22/19 Albuterol Sulfate [Albuterol Sulfate Hfa] 8.5 gm IH ASDIR PRN 07/24/19 Ibuprofen [Motrin 800 mg Tablet] 800 mg PO Q6 #30 tablet 08/03/19 Oxycodone HCl/Acetaminophen [Percocet 5-325 mg Tablet] 1 tab PO Q4HP PRN #20 tablet 08/03/19 Vit/Dha [ Multi + Dha Capsule] 1 cap PO DAILY capsule 08/03/19 Allergies/Adverse Reactions: shellfish derived Allergy (Severe, Verified 08/05/19 09:20) Anaphylaxis cats Allergy (Severe, Uncoded 08/05/19 09:20) Hives Review of Systems Constitutional: PRESENT: as per HPI Physical Exam - Physical Exam Vital Signs: Temp Pulse Resp BP Pulse Ox 98.8 F 101 H 23 H 134/71 H 100 08/05/19 09:21 08/05/19 09:13 08/05/19 11:15 08/05/19 11:15 08/05/19 11:15 Intake & Output 08/04/19 08/05/19 08/06/19 06:59 06:59 06:59 Intake Total 1000 Balance 1000 Weight 82.4 kg - Gynecological Exam Labia: normal Urethra: normal Introitus: normal Perineum: normal Vagina: normal, other - one blood clot cleared and cervix examined. Noted to be closed with no significant bleeding at this time on exam I performed. Uterus: tender - uterus is approximately 2 cm below umbilicus which is larger than expectef for this time frame. No bleeding noted with fundal rub performed Result Laboratory Results: 08/05/19 09:25 WBC 14.5 H RBC 3.21 L Hgb 7.5 L Hct 23.8 L MCV 74 L MCH 23.5 L MCHC 31.7 L RDW 17.0 H Plt Count 349 Seg Neutrophils % 71.5 Impressions: Pelvis Ultrasound 08/05/19 10:28 IMPRESSION: uterus with a large amount of heterogeneous contents within the endometrial canal. The differential diagnosis includes hemorrhagic products versus retained products of conception. Assessment & Plan - Diagnosis (1) bleeding Is this a current diagnosis for this admission?: Yes (2) History of section Is this a current diagnosis for this admission?: Yes (3) S/P repeat low transverse Is this a current diagnosis for this admission?: Yes - Time Time Spent: 30 to 50 Minutes Critical Time spent with patient: 15-24 minutes Medications reviewed and adjusted accordingly: Yes Anticipated discharge: Home Within: within 24 hours - Plan Summary Plan Summary: plan for this time to give uterotonics here in ED. Dr. Muniz has already ordered blood transfusion which is appropriate I feel. If patient responds well to uterotonics and blood transfusion will recommend discharge to home with PO methergine to take q 8 hours for the next 3 days and then follow up at [facility] office on Wednesday. If no response to uterotonic efforts may need admission and possible D&C.
[2019-08-05] MEDS ORDERED: NORMAL SALINE 250 ML IV PRN ×2 (11:52)
[2019-08-05] MEDS ORDERED: METHYLERGONOVINE MALEATE 0.2 MG TABLET PO SCH (12:00)
[2019-08-05] MEDS ORDERED: ACETAMINOPHEN 325 MG TABLET PO ONE (12:28)
[2019-08-05 14:19] LABS: APPEARANCE,URINE CLEAR; BILIRUBIN,URINE NEGATIVE (NEGATIVE); COLOR,URINE STRAW; GLUCOSE, URINE NEGATIVE (NEGATIVE); KETONES,URINE NEGATIVE (NEGATIVE); LEUKOCYTE ESTERASE,URINE NEGATIVE (NEGATIVE); NITRITE,URINE NEGATIVE (NEGATIVE); PROTEIN,URINE NEGATIVE (NEGATIVE); URINE SPECIFIC GRAVITY 1.011; UROBILINOGEN,URINE NEGATIVE mg/dL (<2.0)
[2019-08-05 17:04] LABS: HEMATOCRIT 28.9 % (36.0-47.0); MEAN CORPUSCULAR HEMOGLOBIN 25.4 pg (27.0-33.4); MEAN CORPUSCULAR HGB CONC 32.7 g/dL (32.0-36.0); MEAN CORPUSCULAR VOLUME 78 fl (80-97); PLATELET COUNT 261 10^3/uL (150-450); RED BLOOD COUNT 3.71 10^6/uL (3.72-5.28); RED CELL DISTRIBUTION WIDTH 18.8 % (11.5-14.0); WHITE BLOOD COUNT 22.9 10^3/uL (4.0-10.5)
[2019-08-05 17:25] LABS: HEMOGLOBIN 9.4 g/dL (12.0-15.5)
[2019-08-05 17:27] LABS: ABSOLUTE LYMPHOCYTES# (MANUAL) 4.1 10^3/uL (0.5-4.7); ABSOLUTE MONOCYTES # (MANUAL) 0.2 10^3/uL (0.1-1.4); BASOPHILS % (MANUAL) 0 % (0-2); EOSINOPHILS % (MANUAL) 0 % (0-6); LYMPHOCYTES % (MANUAL) 18 % (13-45); MONOCYTES % (MANUAL) 1 % (3-13); SEGMENTED NEUTROPHILS % (MAN) 81 % (42-78); TOTAL CELLS COUNTED 100
[2019-08-05 17:28] LABS: ANISOCYTOSIS 2+; OVALOCYTES 1+; PLATELET COMMENT ADEQUATE; POIKILOCYTOSIS 1+
[2019-08-05 18:39] VITALS: BP 103/68
== END 2019-08-05 18:49 | disposition home or self-care (01) ==
LOC: ER 09:09
DX: O72.2 Delayed and secondary postpartum hemorrhage (principal); R42 Dizziness and giddiness; R10.2 Pelvic and perineal pain; I10 Essential (primary) hypertension; J45.909 Unspecified asthma, uncomplicated
CPT/HCPCS: 96376; 99284; 96361; 96374; 96375; 86900; 86901; 36415; 36430; 86850; 85025; 81001; 86920; 76857; P9016; J3490 ×2; J2270; J2405; J7120